=== PATIENT | male | born 1980 | race Caucasian/White ===

== ENCOUNTER 2019-05-01 00:26 | Emergency (ER) | payer BC ==
[~2019-05-01] VITALS: Ht 188 cm; Wt 90.7 kg
[2019-05-01 00:50] LABS: ABSOLUTE BASOPHILS 0.1 thou/uL (0.0-0.2); ABSOLUTE EOSINOPHILS 0.1 thou/uL (0.0-0.7); ABSOLUTE LYMPHOCYTES 1.4 thou/uL (0.8-5.3); ABSOLUTE MONOCYTES 0.5 thou/uL (0.0-1.2); ABSOLUTE NEUTROPHILS 9.2 thou/uL (1.6-8.1); BASOPHILS 0.8 %; EOSINOPHILS 0.5 %; HEMATOCRIT 45.8 % (42.0-52.0); HEMOGLOBIN 15.8 gm/dL (14.0-18.0); LYMPHOCYTES 12.2 %; MCH 30.3 pg (26.0-34.0); MCHC 34.4 g/dL (28.0-37.0); MCV 87.9 fL (80.0-100.0); MONOCYTES 4.7 %; MPV 8.5 fl. (7.2-11.1); NUCLEATED RBCS 0 /100WBC; PLATELET COUNT* 240 thou/uL (150-400); POLYS 81.8 %; RBC 5.21 mil/uL (4.50-6.00); RDW-CV 12.8 % (10.5-14.5); WBC 11.2 thou/uL (4.0-11.0)
[2019-05-01 01:12] LABS: CALCIUM 9.4 mg/dL (8.5-10.1); CREATININE 1.4 mg/dL (0.6-1.3); POTASSIUM 3.6 mmol/L (3.5-5.1)
[2019-05-01 01:16] LABS: ALBUMIN 4.5 g/dL (3.4-5.0); TOTAL BILIRUBIN 0.4 mg/dL (<0.1-1.0); TOTAL PROTEIN 7.7 g/dL (6.4-8.2)
[2019-05-01] MEDS ORDERED: NORCO 7.5-3251 EACH PO (06:11)
[2019-05-01] MEDS ORDERED: ZOFRAN ODT4 MG PO (06:11)
[2019-05-01] MEDS ORDERED: BENTYL 20 MG TA20 M1 PO (06:11)
[2019-05-01 06:50] VITALS: BP 129/74
--- NOTE | 2019-05-01 12:44 | EKG ---
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
== END 2019-05-01 06:50 | disposition home or self-care (01) ==
LOC: M.ERS 00:26
PROVIDERS: Emergency Medicine
DX: R10.33 Periumbilical pain (principal); R11.0 Nausea; Z88.1 Allergy status to other antibiotic agents